=== PATIENT | female | born 1975 | race Caucasian/White ===

== ENCOUNTER 2017-12-21 19:15 | Emergency (ER) | payer MEDICAID ==
[~2017-12-21] VITALS: Ht 162.6 cm; Wt 109.8 kg
[2017-12-21 19:46] VITALS: BP 166/98; Ht 162.6 cm; Wt 109.8 kg
== END 2017-12-21 20:45 | disposition home or self-care (01) ==
LOC: ED 19:15
DX: S20.162A Insect bite (nonvenomous) of breast, left breast, initial encounter (principal); K46.9 Unspecified abdominal hernia without obstruction or gangrene; W57.XXXA Bitten or stung by nonvenomous insect and other nonvenomous arthropods, initial encounter; Y92.9 Unspecified place or not applicable

== ENCOUNTER 2019-01-27 10:14 | Emergency (ER) | payer MEDICAID ==
[~2019-01-27] VITALS: Ht 165.1 cm; Wt 116.1 kg
[2019-01-27 10:18] VITALS: Ht 165.1 cm; Wt 116.1 kg
[2019-01-27 11:26] LABS: BASOPHIL % 0.4 % (0-2); PLATELET COUNT 223 x10^3mcL (130-400); RED CELL DISTRIBUTION WIDTH 14.3 % (11.5-14.5)
[2019-01-27 11:41] LABS: CALCIUM 8.2 mg/dL (8.5-10.1); CARBON DIOXIDE 24.9 mmol/L (21-32); CHLORIDE SERUM 103 mmol/L (98-107); CREATININE SERUM 0.8 mg/dL (0.6-1.0); GFR1 > 60 mL/min; GLUCOSE SERUM 124 mg/dL (74-106); POTASSIUM SERUM 3.8 mmol/L (3.5-5.1); SODIUM SERUM 137 mmol/L (136-145)
[2019-01-27 11:49] LABS: ALBUMIN 3.6 g/dL (3.4-5.0); ALKALINE PHOSPHATASE 112 U/L (46-116); ALT/SGPT 25 U/L (14-59); AST/SGOT 13 U/L (15-37); BILIRUBIN TOTAL 0.28 mg/dL (0.20-1.00); TOTAL PROTEIN, SERUM 7.9 g/dL (6.4-8.2)
[2019-01-27 17:30] VITALS: BP 162/82
== END 2019-01-27 17:30 | disposition short-term general hospital (02) ==
LOC: ED 10:14
PROVIDERS: Emergency Medicine
DX: I71.00 Dissection of unspecified site of aorta (principal); I16.0 Hypertensive urgency; Z98.890 Other specified postprocedural states
CPT/HCPCS: 85378; J1885; J3490; Q9967

== ENCOUNTER → 2019-04-06 | Outpatient (CLI) | payer MEDICAID | END | disposition home or self-care (01) | LOC: RD 11:37 | DX: Z98.890 Other specified postprocedural states (principal) ==

== ENCOUNTER 2020-01-24 19:50 | Emergency (ER) | payer OTHER ==
[~2020-01-24] VITALS: Ht 162.6 cm; Wt 121.6 kg
[2020-01-24 20:09] VITALS: Ht 162.6 cm; Wt 121.6 kg
[2020-01-25 01:55] VITALS: BP 123/76
== END 2020-01-25 01:55 | disposition home or self-care (01) ==
LOC: ED 19:50
DX: M54.5 Low back pain (principal); V49.9XXA Car occupant (driver) (passenger) injured in unspecified traffic accident, initial encounter; Y93.89 Activity, other specified; Y92.89 Other specified places as the place of occurrence of the external cause; Y99.8 Other external cause status